=== PATIENT | female | born 1965 | race Caucasian/White ===

== ENCOUNTER 2021-01-25 14:28 | Emergency (ER) | payer OTHER, SELFPAY ==
--- NOTE | 2021-01-25 14:37 | ED.WOUNDLAC ---
HPI - Wound/Laceration General Chief Complaint: Wound/Laceration Stated Complaint: chin injury Time Seen by Provider: 01/25/21 14:37 Source: patient and RN notes reviewed History of Present Illness HPI narrative: Patient is a 55-year-old female who presents the urgent care with complaints of an open wound to the chin. Patient states that 2 weeks ago she fell, tripping over her dog and landed on her chin. Patient states she also bit through her bottom lip which seems to be healing well according to the patient. Patient states that she has been putting Neosporin on the chin as well as a warm compress. Patient states that she believes she may have had an abscess on the chin that burst a couple days ago . Patient states that she is worried about infection. Denies of any increased redness, nausea, vomiting, fever. No other acute complaints. No acute distress noted. Patient aware of the plan of care. Some parts of this dictation were generated by voice recognition software and may contain typographical and/or grammatical inaccuracies. Related Data Allergies Allergy/AdvReac Type Severity Reaction Status Date / Time No Known Allergies Allergy Verified 01/25/21 14:46 Review of Systems Review of Systems: Narrative: CONSTITUTIONAL: Denies fever, chills, or sweats. EYES: Denies visual changes, redness, or discharge. ENT: Denies rhinorrhea, congestion, sore throat, or otalgia. CARDIOVASCULAR: Denies chest pain, palpitations, or edema. RESPIRATORY: Denies cough or dyspnea. GASTROINTESTINAL: Denies abdominal pain, nausea, vomiting, or diarrhea. GENITOURINARY: Denies dysuria or hematuria. SKIN: Reports of an open wound to the chin MUSCULOSKELETAL: Denies back pain, joint pain, or myalgia. NEUROLOGIC: Denies headache, numbness, or weakness. All other systems reviewed are negative, except as documented in HPI. PMFSH Comments At the time of my signature, I reviewed and agree with the nursing past medical, surgical, social, and family history. There is no relevant family history pertinent to the patient complaint. Exam Narrative: Exam Narrative: GENERAL: This is a well-nourished, well-developed patient, in no apparent distress. HEAD: normocephalic, atraumatic. EYES: PERRL. Sclera clear/white. Vision is grossly intact. EARS: External ears normal NOSE: External nose normal with no obvious nasal discharge, nares without redness, no rhinorrhea. THROAT: Mucous membranes moist NECK: Neck supple CARDIOVASCULAR: Regular rate and rhythm without murmurs, gallops, or rubs. RESPIRATORY: Clear to auscultation. Breath sounds equal bilaterally. No wheezes, rales, or rhonchi. SKIN: 2 x 2cm circular opened wound under the chin without surrounding erythema. Scant yellow to clear drainage. NEURO: awake, alert, and oriented to person, place and time. There were no obvious focal neurologic abnormalities. EXTREMITIES: No clubbing, cyanosis, or edema. Course Vital Signs Vital signs: Vital Signs Temperature 97.7 F 01/25/21 14:40 Pulse Rate 112 H 01/25/21 14:40 Respiratory Rate 20 01/25/21 14:40 Blood Pressure 170/76 H 01/25/21 14:40 Pulse Oximetry 100 01/25/21 14:40 Temperature 97.7 F 01/25/21 14:40 Pulse Rate 112 H 01/25/21 14:40 Respiratory Rate 20 01/25/21 14:40 Blood Pressure 170/76 H 01/25/21 14:40 Pulse Oximetry 100 01/25/21 14:40 Review-patient is informed that they may have pre-hypertension or hypertension based on a blood pressure reading in the department. I recommend the patient call the primary care provider listed on their discharge instructions or a physician of their choice this week to arrange follow-up for further evaluation of possible pre-hypertension or hypertension. MDM - Wound/Laceration MDM Narrative Medical decision making narrative: Advised the patient to complete oral antibiotic regimen as prescribed. Be sure to eat and drink with the medication. Use prescription cream to the affected area twice a
[2021-01-25 14:40] VITALS: BP 170/76; PULSE 112; RESP 20; TEMP 36.5; O2SAT 100
== END 2021-01-25 14:52 | disposition home or self-care (01) ==
PROVIDERS: Emergency Provider Nurse Practitioner Family
DX: S01.80XA Unspecified open wound of other part of head, initial encounter (principal); R03.0 Elevated blood-pressure reading, without diagnosis of hypertension; W01.0XXA Fall on same level from slipping, tripping and stumbling without subsequent striking against object, initial encounter
CPT/HCPCS: 99213; G0463